=== PATIENT | male | born 1970 | race Hispanic/Latino ===

== ENCOUNTER 2018-02-20 16:42 | Inpatient (IN) | payer OTHER ==
[~2018-02-20] VITALS: Ht 167.6 cm; Wt 73.3 kg
[2018-02-20 17:26] LABS: BASOPHIL (%) 0.2 % (0-1); EOSINOPHIL (%) 0 % (0-5); HEMATOCRIT 40.7 % (38.0-50.0); HEMOGLOBIN 13.9 G/DL (12.5-16.6); IMMATURE GRANULOCYTE (%) 0.4 % (0.0-0.7); LYMPHOCYTE (%) 9.2 % (15-42); LYMPHOCYTE COUNT 1.1 K/uL (1.0-2.8); MCH 28.4 PG (29.0-34.0); MCHC 34.2 G/DL (30.0-36.0); MCV 83.1 FL (86-99); MONOCYTE (%) 7.3 % (3-12); MONOCYTE COUNT 0.9 K/uL (0-0.8); NEUTROPHIL (%) 82.9 % (45-76); NEUTROPHIL COUNT 9.9 K/uL (1.8-6.4); PLATELET COUNT 150 K/uL (156-360); RBC DIS.WIDTH-CV 12.7 % (11.8-14.6); RBC DIS.WIDTH-SD 38.5 % (39-53); WHITE BLOOD COUNT 11.9 K/uL (4.1-10.2)
[2018-02-20 17:30] LABS: INTER. NORMALIZED RATIO 1.3
[2018-02-20 17:33] LABS: PTT 27.2 SEC (25-37)
[2018-02-20 17:37] LABS: CHLORIDE 102 mEq/L (99-109); POTASSIUM 3.8 mEq/L (3.7-5.4); SODIUM 135 mEq/L (136-147)
[2018-02-20 17:40] LABS: GLUCOSE 119 mg/dL (70-99); TOTAL PROTEIN 7.1 g/dL (6.4-8.3)
[2018-02-20 17:43] LABS: ALKALINE PHOSPHATASE 61 IU/L (3-129); CREATININE 0.9 mg/dL (0.6-1.3); GFR ESTIMATE (CALCULATED) > 59 mL/min/ (58.99-99999)
[2018-02-20 17:44] LABS: UREA NITROGEN (BUN) 13 mg/dL (9-23)
[2018-02-20 17:45] LABS: AST (GOT) 17 IU/L (2-34)
[2018-02-20 17:46] LABS: ALT (GPT) 17 IU/L (3-49)
[2018-02-20 17:47] LABS: LIPASE 15 U/L (1.0-51.0)
[2018-02-20] MEDS ORDERED: VITAMIN D31000 UNIT PO (17:48)
[2018-02-20 19:08] LABS: APPEARANCE SL.HAZY ((CLEAR)); BILIRUBIN NEGATIVE; BLOOD MODERATE; COLOR YELLOW ((YELLOW)); GLUCOSE (STRIP) NEGATIVE; KETONES 5; LEUKOCYTES LARGE; NITRITE POSITIVE; PROTEIN (STRIP) 30; SPECIFIC GRAVITY 1.015 (1.000-1.030); UROBILINOGEN 0.2 MG/DL (0.2-1.0)
[2018-02-20 19:24] LABS: BACTERIA RARE /HPF; EPITHELIAL CELLS NONE SEEN /HPF; MUCUS TRACE /LPF; RED BLOOD CELLS 30-40 /HPF (0-5); UCUL ADDED? YES; WHITE BLOOD CELLS TNTC /HPF (0-5)
[2018-02-20 22:46] VITALS: BP 188/83
[2018-02-20 23:39] VITALS: BP 126/71
[2018-02-21] VITALS (9 sets, daily range): BP systolic 113–170; BP diastolic 62–87
[2018-02-21 06:16] LABS: BASOPHIL (%) 0.2 % (0-1); EOSINOPHIL (%) 0 % (0-5); HEMATOCRIT 35.9 % (38.0-50.0); HEMOGLOBIN 12.2 G/DL (12.5-16.6); IMMATURE GRANULOCYTE (%) 0.8 % (0.0-0.7); LYMPHOCYTE (%) 6.5 % (15-42); LYMPHOCYTE COUNT 0.6 K/uL (1.0-2.8); MCH 28.4 PG (29.0-34.0); MCV 83.7 FL (86-99); MONOCYTE (%) 6.4 % (3-12); MONOCYTE COUNT 0.6 K/uL (0-0.8); NEUTROPHIL (%) 86.1 % (45-76); PLATELET COUNT 140 K/uL (156-360); RBC DIS.WIDTH-CV 12.9 % (11.8-14.6); RBC DIS.WIDTH-SD 39.8 % (39-53); RED BLOOD COUNT 4.29 M/uL (4.00-5.50); WHITE BLOOD COUNT 9.3 K/uL (4.1-10.2)
[2018-02-21 06:23] LABS: CHLORIDE 105 MEQ/L (99-109); CREATININE 0.8 MG/DL (0.6-1.3); GFR ESTIMATE (CALCULATED) > 59 mL/min/ (58.99-99999); GLUCOSE 130 mg/dL (70-99); POTASSIUM 3.4 MEQ/L (3.7-5.4); SODIUM 137 MEQ/L (136-147); UREA NITROGEN (BUN) 11 mg/dL (9-23)
[2018-02-22 00:02] VITALS: BP 108/59
[2018-02-22 04:41] VITALS: BP 105/73
[2018-02-22 07:40] VITALS: BP 122/55
[2018-02-22] MEDS ORDERED: MOTRIN800 MG PO (07:59)
[2018-02-22] MEDS ORDERED: CEFTIN500 MG PO (07:59)
[2018-02-22 11:26] VITALS: BP 119/64
[2018-02-22 20:32] VITALS: BP 117/61
[2018-02-23 00:52] VITALS: BP 113/64
[2018-02-23 04:05] VITALS: BP 138/78
[2018-02-23 07:29] VITALS: BP 137/75
[2018-02-23 11:25] VITALS: BP 125/74
[2018-02-23 16:15] VITALS: BP 120/65
[2018-02-23 23:51] VITALS: BP 115/75
[2018-02-24 07:48] VITALS: BP 112/70
== END 2018-02-24 14:09 | disposition home or self-care (01) | DRG 872 ==
LOC: EME 16:42 → 5EAST 21:38 → EDOF 21:38 → 5EAST 22:25
PROVIDERS: Internal Medicine; Physician Assistant
DX: A41.9 Sepsis, unspecified organism (principal); N39.0 Urinary tract infection, site not specified; B96.20 Unspecified Escherichia coli [E. coli] as the cause of diseases classified elsewhere; E87.1 Hypo-osmolality and hyponatremia; E86.0 Dehydration; N20.0 Calculus of kidney; Z87.440 Personal history of urinary (tract) infections
CPT/HCPCS: 71046; 74176; 80048; 80053; 81003; 83605; 83690; 85025; 85610; 85730; 86850; 86900; 86901; 87040; 87077; 87086; 87186; 99281; 99285; J0692; J0696; J1644; J1885; J2543; J3370; J7030